=== PATIENT | male | born 1940 | race Caucasian/White ===

== ENCOUNTER → 2018-06-15 | Outpatient (CLI) | payer OTHER | LOC: HYPER 06:55 | DX: L03.115 Cellulitis of right lower limb (principal); R21 Rash and other nonspecific skin eruption; L30.9 Dermatitis, unspecified; L50.9 Urticaria, unspecified; E11.65 Type 2 diabetes mellitus with hyperglycemia; E11.40 Type 2 diabetes mellitus with diabetic neuropathy, unspecified; E78.2 Mixed hyperlipidemia; E66.9 Obesity, unspecified; E78.5 Hyperlipidemia, unspecified; H02.30 Blepharochalasis unspecified eye, unspecified eyelid; H25.89 Other age-related cataract; I10 Essential (primary) hypertension; K21.9 Gastro-esophageal reflux disease without esophagitis; M17.0 Bilateral primary osteoarthritis of knee; F17.200 Nicotine dependence, unspecified, uncomplicated; Z68.23 Body mass index [BMI] 23.0-23.9, adult; Z86.73 Personal history of transient ischemic attack (TIA), and cerebral infarction without residual deficits; Z79.52 Long term (current) use of systemic steroids; Z79.01 Long term (current) use of anticoagulants; Z79.4 Long term (current) use of insulin; Z79.84 Long term (current) use of oral hypoglycemic drugs ==